=== PATIENT | female | born 1980 | race Caucasian/White ===

== ENCOUNTER 2021-12-27 12:01 | Emergency (ER) | payer OTHER, SELFPAY ==
--- NOTE | ~2021-12-27 | XR_ITS ---
EXAMINATION: XR chest 2V 12/27/2021 13:16 INDICATION: Cough. Post Covid. PROCEDURE: 2 view chest COMPARISON: No prior studies for comparison. FINDINGS: The lungs are clear. The cardiomediastinal silhouette is within normal limits. There are no pleural effusions. There is no pneumothorax suspected. IMPRESSION: 1: NO ACUTE CARDIOPULMONARY DISEASE. Reviewed, dictated and finalized at location A.
[2021-12-27 12:15] VITALS: BP 146/91; PULSE 59; RESP 18; TEMP 36.6; O2SAT 100
--- NOTE | 2021-12-27 12:59 | ED.URI ---
HPI - URI/Sore Throat General Chief Complaint: Upper Respiratory Infection Stated Complaint: Cough,Loss of Smell and Taste Time Seen by Provider: 12/27/21 12:55 Source: patient, RN notes reviewed and old records reviewed Mode of arrival: ambulatory Limitations: no limitations History of Present Illness HPI Narrative: 41-year-old female who presents to [facility] with complaints of continued cough congestion general fatigue and malaise post COVID. Patient tested positive for COVID on 17 December she did also receive Paxlovid of which she completed. Patient denies any shortness of breath but continued cough, states loss of taste and smell also. she states that she had started to fell a little better till the 16th whend g she started having increased cough and fatigue concerned she has pneumonia or rebound COVID. MD elicited complaint: cough and other (fatigue) Treatments prior to arrival: acetaminophen and other (Paxlovid) Related Data Home Medications Medication Instructions Recorded Confirmed labetalol 200 mg tablet 200 mg PO DAILY 12/27/21 12/27/21 Allergies Allergy/AdvReac Type Severity Reaction Status Date / Time Penicillins AdvReac Mild Hives Verified 12/27/21 13:48 Review of Systems Review of Systems: CONSTITUTIONAL: Denies fever, chills, or sweats. EYES: Denies visual changes, redness, or discharge. ENT: positive for rhinorrhea, congestion, no sore throat, or otalgia. reports loss of taste and smell. CARDIOVASCULAR: Denies chest pain, palpitations, or edema. RESPIRATORY: Positive for cough denies dyspnea. GASTROINTESTINAL: Denies abdominal pain, nausea, vomiting, or diarrhea. GENITOURINARY: Denies dysuria or hematuria. SKIN: Denies rash or itching. MUSCULOSKELETAL: Denies back pain, joint pain, or myalgia. NEUROLOGIC: Denies headache, numbness, or weakness. PSYCHIATRIC: Denies anxiety or depression. All systems reviewed & are unremarkable except as noted in HPI and below PMFSH Past Medical History Medical History (Updated 12/30/21 @ 19:34 by Gem Bowen NP) COVID-19 12/17/2021 Hypertension Surgical History Surgical History (Updated 12/30/21 @ 19:36 by Gem Bowen NP) History of dilatation and curettage X4 History of endometrial ablation History of placement of ear tubes History of tonsillectomy and adenoidectomy Previous section x2 Social History Social History (Updated 12/30/21 @ 19:39 by Gem Bowen NP) Smoking status: Never smoker Alcohol intake: unknown Substance use type: does not use Living arrangements: with family Gender identity (if verbalized by the patient): Female Comments At time of signature, agree with nursing past medical, surgical, social and family history. There is no relevant family history pertinent to the presenting complaint Exam Narrative: GENERAL: Well-appearing, well-nourished, and in no acute distress. HEAD: Normocephalic, atraumatic. EYES: PERRLA and EOMI. ENT: Nares with redness, clear rhinorrhea no epistaxis. Mucous membranes moist.TM's normal , throat with mild redness no lesions or tonsils present,post nasal discharge NECK: Supple.no lymphadenopathy CHEST: Clear to auscultation. No respiratory distress. HEART: Regular rate and rhythm. No murmur heard. Normal peripheral pulses. ABDOMEN: Soft, nontender, nondistended, normal active bowel sounds. EXTREMITIES: Normal range of motion. No edema. SKIN: Warm, dry, no rash. NEURO: No focal deficits. Alert and oriented x3. Course Course Level of Care: Express Care Visit Vital Signs Vital signs: Vital Signs Temperature 36.6 C 12/27/21 12:15 Pulse Rate 59 L 12/27/21 12:15 Respiratory Rate 18 12/27/21 12:15 Blood Pressure 146/91 H 12/27/21 12:15 Pulse Oximetry 100 12/27/21 12:15 Oxygen Delivery Room Air 12/27/21 12:15 Temperature 36.6 C 12/27/21 12:15 Pulse Rate 59 L 12/27/21 12:15 Respiratory Rate 18 12/27/21 12:15 Blood Pressure 146/91 H
== END 2021-12-27 13:51 | disposition home or self-care (01) ==
PROVIDERS: Emergency Provider Registered Nurse
DX: R05.9 Cough, unspecified (principal); Z86.16 Personal history of COVID-19
CPT/HCPCS: 71046; 99213; G0463